=== PATIENT | male | born 1985 | race Caucasian/White ===

== ENCOUNTER 2021-01-18 11:09 | Observation (INO) | payer OTHER ==
[~2021-01-18] VITALS: Ht 180.3 cm; Wt 90.1 kg
[2021-01-18] MEDS ORDERED: SODIUM CHLORIDE 0.9% 1,000 ML IV SCH (12:00)
[2021-01-18 12:10] LABS: BASOPHILS % (AUTO) 0 % (0-1); EOSINOPHILS % (AUTO) 1 % (1-7); LYMPHOCYTES % (AUTO) 17 % (22-44); MEAN CORPUSCULAR HEMOGLOBIN 30.2 pg (27.5-34.5); MEAN CORPUSCULAR HGB CONC 34.1 g/dL (33.2-36.2); MEAN PLATELET VOLUME 9.7 fL (7.4-10.4); MONOCYTES % (AUTO) 7 % (2-9); NEUTROPHILS % (AUTO) 75 % (42-75); PLATELET COUNT 300 x10^3/uL (130-400); RED BLOOD COUNT 5.47 x10^6/uL (4.38-5.82); RED CELL DISTRIBUTION WIDTH 13.7 % (9.4-14.8)
[2021-01-18 12:19] LABS: ALANINE AMINOTRANSFERASE 37 U/L (12-78); ANION GAP 3 mmol/L (5-15); CHLORIDE 108 mmol/L (98-107)
[2021-01-18 12:22] LABS: ALKALINE PHOSPHATASE 84 U/L (45-117); BILIRUBIN,TOTAL 1.1 mg/dL (0.2-1.0); CREATININE 0.91 mg/dL (0.7-1.3); TOTAL PROTEIN 8.3 g/dL (6.4-8.2)
[2021-01-18] MEDS ORDERED: ADENOSINE 6 MG/2 ML ONE (12:46)
[2021-01-18] MEDS ORDERED: MIDAZOLAM 1 MG/ML, 5ML ONE (12:46)
[2021-01-18] MEDS ORDERED: ISOPROTERENOL 0.2MG/ML, 5ML ONE (12:46)
[2021-01-18] MEDS ORDERED: FENTANYL PF 100 MCG/2ML ONE ×3 (12:46→17:04)
[2021-01-18] MEDS ORDERED: LIDOCAINE 2%, 20ML ONE ×3 (12:47→17:16)
[2021-01-18] MEDS ORDERED: HEPARIN 1,000 UNITS/ML, 10ML ONE ×2 (14:22→14:56)
[2021-01-18] MEDS ORDERED: MIDAZOLAM 1 MG/ML, 2ML ONE ×2 (16:42→17:04)
[2021-01-18] MEDS ORDERED: ONDANSETRON 2MG/ML, 2ML IVPush PRN (17:30)
[2021-01-18] MEDS ORDERED: ASPI81TA45 PO (17:45)
[2021-01-18] MEDS: ACETAMINOPHEN 325 MG TABLET PO PRN (18:24)
[2021-01-18 19:33] VITALS: BP 112/81
[2021-01-19 00:36] VITALS: BP 100/68
[2021-01-19] MEDS: ACETAMINOPHEN 325 MG TABLET PO PRN (06:33)
[2021-01-19] MEDS ORDERED: ASPIRIN 325 MG TABLET EC PO SCH (07:00)
[2021-01-19] MEDS: ASPIRIN 325 MG TABLET EC PO SCH ×2 (07:31→08:02)
[2021-01-19 07:59] VITALS: BP 115/87
[2021-01-19] MEDS ORDERED: ASPI-1026 PO (09:57)
[2021-01-19] MEDS ORDERED: COLC0.6C3 PO (10:32)
[2021-01-19] MEDS ORDERED: PANT40GR PO (10:32)
== END 2021-01-19 14:28 | disposition home or self-care (01) ==
LOC: CACL 11:09 → 5SO 17:25 → CACL 17:38 → DCLOUNGE 01-19 14:10
PROVIDERS: ADMIT Internal Medicine Clinical Cardiac Electrophysiology; ATTEND Internal Medicine Clinical Cardiac Electrophysiology
DX: I47.1 Supraventricular tachycardia (principal); Z79.899 Other long term (current) drug therapy
CPT/HCPCS: 36415; 71046; 80053; 85025; 85347; 93005; 93306; 93462; 93613; 93621; 93623; 93653; 93662; 96374; 99156; 99157; C1730; C1732; C1759; C1766; C1769; C1893; C1894; C2630; G0378; J0153; J1644; J2250; J2405; J3010; J3490

== ENCOUNTER 2021-03-09 06:12 | Day surgery (SDC) | payer OTHER ==
[~2021-03-09] VITALS: Ht 180.3 cm; Wt 90.0 kg
[~2021-03-09 06:12] MED LIST: ASPI-1026 PO; ASPI81TA45 PO; COLC0.6C3 PO; PANT40GR PO
[2021-03-09] MEDS ORDERED: DILT120C80 PO (06:41)
[2021-03-09] MEDS ORDERED: ASPI325T20 PO (06:41)
[2021-03-09] MEDS ORDERED: SODIUM CHLORIDE 0.9% 1,000 ML IV SCH (07:00)
[2021-03-09 07:02] LABS: BASOPHILS % (AUTO) 1 % (0-1); EOSINOPHILS % (AUTO) 2 % (1-7); LYMPHOCYTES % (AUTO) 27 % (22-44); MEAN CORPUSCULAR HEMOGLOBIN 30.4 pg (27.5-34.5); MEAN CORPUSCULAR HGB CONC 34.1 g/dL (33.2-36.2); MEAN PLATELET VOLUME 9.2 fL (7.4-10.4); MONOCYTES % (AUTO) 9 % (2-9); NEUTROPHILS % (AUTO) 61 % (42-75); PLATELET COUNT 341 x10^3/uL (130-400); RED CELL DISTRIBUTION WIDTH 13.4 % (9.4-14.8)
[2021-03-09] MEDS ORDERED: LIDOCAINE 2%, 20ML ONE (07:11)
[2021-03-09 07:14] LABS: ANION GAP 9 mmol/L (5-15); CALCIUM 9.3 mg/dL (8.5-10.1); CHLORIDE 106 mmol/L (98-107); CREATININE 0.78 mg/dL (0.7-1.3); INTERNATIONAL NORMALIZED RATIO 0.93 (0.93-1.1)
[2021-03-09] MEDS ORDERED: MIDAZOLAM 1 MG/ML, 5ML ONE ×2 (07:46→08:36)
[2021-03-09] MEDS ORDERED: FENTANYL PF 100 MCG/2ML ONE ×2 (07:46→08:36)
[2021-03-09] MEDS ORDERED: ISOPROTERENOL 0.2MG/ML, 5ML ONE (07:46)
[2021-03-09] MEDS ORDERED: HEPARIN 1,000 UNITS/ML, 10ML ONE (07:50)
[2021-03-09] MEDS ORDERED: LIDOCAINE 1%, 20ML ONE (09:20)
[2021-03-09] MEDS ORDERED: ACETAMINOPHEN 325 MG TABLET PO PRN (09:30)
[2021-03-09] MEDS ORDERED: ONDANSETRON 2MG/ML, 2ML IVPush PRN (09:30)
[2021-03-09] MEDS ORDERED: FLEC50TA25 PO (09:43)
== END 2021-03-09 14:06 | disposition home or self-care (01) ==
LOC: CACL 06:12
PROVIDERS: ATTEND Internal Medicine Clinical Cardiac Electrophysiology
DX: I48.0 Paroxysmal atrial fibrillation (principal); I47.1 Supraventricular tachycardia; Z79.899 Other long term (current) drug therapy; Z87.891 Personal history of nicotine dependence
CPT/HCPCS: 36415; 71046; 80048; 85025; 85610; 85730; 93005; 93613; 93620; 93621; 93623; 99156; 99157; C1730; C1894; J1644; J2250; J3010